=== PATIENT | female | born 1930 | race Caucasian/White ===

== ENCOUNTER 2016-09-18 10:01 | Inpatient (IN) | payer OTHER ==
--- NOTE | ~2016-09-18 | HP ---
History And Physical [facility] [address] [place]. [address] NAME: BENEDICTO COSTELLO : 30 STATUS : ADM Марина PAT#: [id number] AGE: 86 ADM/REG DATE : 09/18/16 MR#: [id number] REPORT SERV DATE: 09/18/16 DICTATED BY: ADRIANA CALVO DATE: 09/18/16 REPORT STATUS : Draft TRANSCRIBED BY: MODL DATE: 09/18/16 DATE OF ADMISSION: 09/18/2016 CHIEF COMPLAINT: Increasing shortness of breath, cough of yellowish sputum, and wheezing since . HISTORY OF PRESENT ILLNESS: This is a prisca 86-year-old female. She has a history of chronic atrial fibrillation, not on anticoagulation due to prior history of GI bleed and peptic ulcer disease. She does have a history of asthma with reactive airway disease. She says history of congestive heart failure with unknown ejection fraction hypertension, hyperlipidemia, hypothyroidism, peptic ulcer disease with prior GI bleed, peripheral vascular disease with prior left carotid endarterectomy, degenerative joint disease, osteoarthritis, and skin cancer, presenting today to [facility] accompanied by her daughter with complaints of increasing shortness of breath, cough of whitish sputum production as well as wheezes that started since . Her shortness of breath got progressively worse to the point that today she has decided to present to [facility]. The patient has been denying any chest pain or palpitation, some PND and intermittent orthopnea. She did not have any presyncopal or syncopal episodes. No nausea. No vomiting. Slightly headache. No diarrhea or constipation. No hematemesis or melena. No hematochezia. No hemoptysis. No other complaints. She has not had any recent sick contacts. No recent hospitalization. The patient has been evaluated in the emergency room and after initial evaluation, Hospitalist Service has been asked for admission, further evaluation, and treatment. The patient's primary care provider is Dr. Polo. The patient's strong nitric operator is Dr. Martinez and patient's photonics engineering technologist is Dr. Mcdonnell. PAST MEDICAL HISTORY: Significant for atrial fibrillation, asthma, congestive heart failure, hypertension, peptic ulcer disease, hypothyroidism, prior GI bleed, peripheral vascular disease, degenerative joint disease, osteoarthritis. PAST SURGICAL HISTORY: Left carotid, hysterectomy, left and right knee replacement, and left and right toe surgery. SOCIAL HISTORY: Denies tobacco, alcohol, or IV drugs. She is allergic to sulfa drugs. FAMILY HISTORY: Significant for congestive heart failure. MEDICATIONS: At home include albuterol, aspirin, Plavix, Flonase, Breo Ellipta, Lasix, Synthroid, Cozaar, Toprol, Bactroban, Prilosec, Paxil, potassium chloride, Zocor, and multivitamins. REVIEW OF SYSTEMS: A 14-point review of systems has been obtained and pertinent positive has been listed into the history of present illness. Otherwise, negative except those underlying above. OBJECTIVE: VITAL SIGNS: The patient currently is afebrile. Blood pressure 170/80, heart rate 77, respiratory rate 20, and saturating around 90% to 91% on room air. History And Physical [address] [address] NAME: BENEDICTO COSTELLO : 30 STATUS : ADM Марина PAT#: [id number] AGE: 86 ADM/REG DATE : 09/18/16 MR#: [id number] REPORT SERV DATE: 09/18/16 DICTATED BY: ADRIANA CALVO DATE: 09/18/16 REPORT STATUS : Draft TRANSCRIBED BY: JC DATE: 09/18/16 GENERAL: She is a very pleasant, well-developed, well-nourished female, in [id number] respiratory distress. She is alert and oriented x3. Nonfocal. She follows her commands appropriately. HEENT: Show pupils equal, round, reactive to light. Extraocular movements intact. No JVD. No lymphadenopathy. No thyromegaly appreciated. CHEST: Shows bilateral air entry. Bilateral scattered wheezes and scattered rhonchi. Decreased breath sounds bibasilarly. No rales appreciated. CARDIOVASCULAR: She is irregularly irregular. S1, S2 positive. No S3, no S4. No murmurs, rubs, or gallops appreciated. ABDOMEN: Soft, positive bowel sounds. Nontender. No guarding. No rebound. EXTREMITIES: No clubbing, cyanosis, or edema. NEUROLOGIC: The patient is alert and oriented x3. She is nonfocal. She follows all her commands appropriately. Cranial nerves are intact. LABORATORY DATA: Labs from today include ABG 7.42, 37, 55, on 21% FiO2. Her sodium is 137, potassium 4, chloride 101, CO2 of 31, BUN 21, creatinine 1.09, glucose is 90. The patient's BNP has been 704.9. Her white count is 4.8, hemoglobin 13.3, hematocrit 39.8, platelets are 112, and the patient's EKG shows left bundle-branch block and atrial fibrillation, and her chest x-ray performed in the emergency room showed bilateral pulmonary infiltrate, likely pulmonary congestion with interstitial edema. ASSESSMENT AND PLAN: This is a very pleasant 86-year-old female with: 1. Likely txuia-xm-[id number] congestive heart failure exacerbation. 2. Asthma exacerbation. 3. Chronic atrial fibrillation. 4. Left bundle-branch block. 5. Hyperesthesia. 6. Peripheral vascular disease. 7. Hypothyroidism. 8. Hyperlipidemia. 9. Recent history of skin cancer. 10.Degenerative joint disease, osteoarthritis. PLAN: 1. The patient will be going to be admitted for observation. Initially, we are going to place her on oxygen IV diuretics for today and transition to oral diuretics in the morning. Rule out her for DC by serial cardiac enzymes, serial EKG. Check 2D echo. Follow up on CT without contrast in the morning and consult Dr. Martinez per patient and family request. 2. Mild asthma exacerbation. We are going to place her on DuoNebs, aggressive, also doxycycline steroids with rapid tapering, continue her Breo Ellipta, Mucinex, Nasonex. We will get a CAT scan of the chest without contrast in the morning and wean her FiO2 as tolerated. 3. Chronic atrial fibrillation. Continue her beta aneta. Continue her aspirin and Plavix. 4. History of peptic ulcer disease. Continue her PPI. 5. History of hypertension. Continue her home medications and provide p.r.n. hydralazine History And Physical [address] [address] NAME: BENEDICTO COSTELLO : 30 STATUS : ADM Марина PAT#: [id number] AGE: 86 ADM/REG DATE : 09/18/16 MR#: [id number] REPORT SERV DATE: 09/18/16 DICTATED BY: ADRIANA CALVO DATE: 09/18/16 REPORT STATUS : Draft TRANSCRIBED BY: MODL DATE: 09/18/16 as needed. 6. Mild chronic kidney disease. We are going to follow up the kidney function very closely. Check UA and urine cultures as well. 7. History of hypothyroidism. Continue her home medication and check a TSH and a free T4. 8. Hyperlipidemia. We will continue her lipid-lowering agent. We will provide reasonable pain and nausea control as well as GI and DVT prophylaxis. Further workup and recommendation pending above. It is worthwhile to note that the patient is going to be followed up by Dr. Ivan Castro. CF/MODL Adriana Calvo M.D. / [id number] CC: Greg Polo MD
--- NOTE | ~2016-09-18 | DS ---
Discharge Summary [facility] [address] [facility] [place]. [address] NAME: BENEDICTO COSTELLO : 30 STATUS : DIS IN PAT#: [id number] AGE: 86 ADM/REG DATE : 09/18/16 MR#: [id number] REPORT SERV DATE: 09/23/16 DICTATED BY: ARMAND ERIC DATE: 09/22/16 REPORT STATUS : Draft TRANSCRIBED BY: MODL DATE: 09/22/16 ADMISSION DATE: 09/18/2016 DISCHARGE DATE: 09/22/2016 The patient is an 86-year-old female with a history of COPD, asthma, heart failure with preserved EF, stage 3 CKD, and hyperlipidemia, who presented to the hospital with a complaint of increased shortness of breath and cough productive of yellow sputum. For further details please refer to H and P dictated by Dr. García on 09/18/2016. HOSPITAL COURSE: I assumed care of the patient on 09/21/2016; however, briefly, the patient came in and was diagnosed with asthma or COPD exacerbation. During workup clinically the patient appeared volume overloaded, was diagnosed with CHF exacerbation. Given these findings, Cardiology was consulted to assist with management. The patient was started on IV diuretics with good response. She was also started on steroids for COPD exacerbation management as well as doxycycline given her production of yellowish sputum, the patient responded well to therapy. At the time of my assumption of care, the patient's heart failure was compensated with no evidence of volume overload. The patient however was on nasal cannula, and daughter who was at bedside was concerned given that at baseline the patient does not require oxygen. The patient was gradually weaned off oxygen with maintenance of adequate saturation. Her cough has significantly resolved, and so has her shortness of breath. The patient has remained also hemodynamically stable. Throughout her hospital course, the patient has been followed by Cardiology. Given the patient's significant improvement Cardiology has currently signed off and cleared the patient for discharge. Given resolution of her shortness of breath and resolution of her cough, the patient will be discharged home today. Plan has been discussed with the patient, who voices understanding and is agreeable with this plan. For further details, from a Cardiology standpoint please refer to consultation note dictated by Dr. Luu on 09/18/2016. DISCHARGE DIAGNOSES: 1. Chronic obstructive pulmonary disease/asthma exacerbation. 2. Heart failure with preserved ejection fraction. 3. Chronic kidney disease, stage 3. 4. Acute kidney injury likely secondary to over diuresis. 5. Hypoxia. 6. Hyperlipidemia. DISCHARGE PHYSICAL EXAMINATION: VITAL SIGNS: Blood pressure 140/68 with a pulse of 82, respirations 20, and O2 saturation 94% on room air. GENERAL: The patient sitting in chair, appears stated age, in no acute distress, eager to go home. HEENT: Normocephalic and atraumatic. Extraocular motors intact. Moist oral mucosa. NECK: Trachea midline and symmetric. No JVD noted. No thyromegaly at the present. No lymphadenopathy noted. CHEST: Nontender to palpation. CARDIOVASCULAR: Regular rate and rhythm. S1, S2. No murmurs, rubs, or gallops. LUNGS: Clear to auscultation bilaterally. No crackles. No wheezes. No rales or rhonchi. Discharge Summary [address] [address] NAME: BENEDICTO COSTELLO : 30 STATUS : DIS IN PAT#: [id number] AGE: 86 ADM/REG DATE : 09/18/16 MR#: [id number] REPORT SERV DATE: 09/23/16 DICTATED BY: ARMAND ERIC DATE: 09/22/16 REPORT STATUS : Draft TRANSCRIBED BY: JC DATE: 09/22/16 ABDOMEN: Positive bowel sounds. Nontender. Nondistended. No organomegaly noted. EXTREMITIES: No cyanosis, no clubbing, no edema. NEUROLOGIC: Alert and oriented x3. No focal deficits appreciated. DISCHARGE MEDICATIONS: 1. Aspirin 81 mg p.o. daily. 2. Plavix 75 mg p.o. daily. 3. Flonase nasal spray, one spray inhalation p.r.n. 4. Furosemide 40 mg p.o. twice a day. Given her slight elevation in creatinine, the patient was instructed to take furosemide once a day until the patient sees her primary care physician to re-evaluate her creatinine which should be in the five to seven days. This was explained to the patient and she voiced understanding. 5. Levothyroxine 50 mcg p.o. every morning. 6. Losartan 100 mg p.o. daily. 7. Bactroban ointment, one application topically twice a day. 8. Metoprolol succinate 50 mg p.o. daily. 9. Omeprazole 20 mg p.o. every morning. 10.Paxil 20 mg p.o. daily. 11.Zocor 40 mg p.o. at bedtime. 12.The patient is to continue on her home dose of potassium replacement, K-Dur 20 mEq tablet, 10 to 20 mEq p.o. three to four days per week. IMAGING STUDIES: 1. Carotid Doppler. Impression:. a. 50 to 69 stenosis involving the right internal carotid artery. b. 50 to 69 stenosis involving the left internal carotid artery. This stenosis is greater in the left internal carotid. c. The vertebral artery exhibited antegrade flow. 2. CT chest without contrast. Impression: Thickening/fluid in the right major fissure, this is slightly decreased compared to 11/19/2013. 3. Area of linear atelectasis and/or fibrosis. The lungs are otherwise clear. 4. Large hiatal hernia. 5. Cardiomegaly, calcific atherosclerosis including involvement of coronary artery disease. 6. Venous Doppler of upper extremity. Impression: No evidence of DVT, right or left upper extremity. 7. Transthoracic echo. Conclusion summary: Normal left ventricular size with low normal systolic function. Estimated ejection fraction 50%. Normal RV size and systolic function. Biatrial enlargement. Mild pulmonary hypertension with RVSP of 44 mmHg. Trace pericardial effusion. Moderate aortic valve stenosis with mean pressure gradient of 12 and TVI 0.31. Mild aortic, mitral, and tricuspid valve regurgitation when compared to previous study from March 2016 no significant change noted. DISPOSITION: The patient will be discharged home. ACTIVITY: As tolerated. Discharge Summary [address] [address] NAME: BENEDICTO COSTELLO : 30 STATUS : DIS IN PAT#: [id number] AGE: 86 ADM/REG DATE : 09/18/16 MR#: [id number] REPORT SERV DATE: 09/23/16 DICTATED BY: ARMAND ERIC DATE: 09/22/16 REPORT STATUS : Draft TRANSCRIBED BY: JC DATE: 09/22/16 DIET: Cardiac diet. Greater than 30 minutes were spent coordinating discharge, medication reconciliation, dictation of note, writing prescription. WHIT/JC Armand Eric MD / [id number] CC: MD Greg Briscoe MD
--- NOTE | ~2016-09-18 | CN ---
Consultation Report [facility] [address] [place]. [address] NAME: BENEDICTO COSTELLO : 30 STATUS : ADM Марина PAT#: [id number] AGE: 86 ADM/REG DATE : 09/18/16 MR#: [id number] REPORT SERV DATE: 09/18/16 DICTATED BY: ROBERTO BLANKENSHIP DATE: 09/18/16 REPORT STATUS : Draft TRANSCRIBED BY: MODL DATE: 09/18/16 CARDIOLOGY CONSULTATION DATE OF CONSULTATION: 09/18/2016 REFERRING REASON: Heart failure exacerbation and asthma exacerbation. HISTORY OF PRESENT ILLNESS: This is a pleasant 86-year-old white female, well known to Dr. Doni Martinez from [facility], who has been closely followed by him. She has chronic atrial fibrillation, which is rate controlled, chronic severe osteopenia, and congestive heart failure. She has a nonischemic cardiomyopathy with EF 45% last time assessed in 03/2016. She has had coronary arteriogram in 2011, which has not revealed any significant obstructive CAD, but confirmed moderate aortic valve stenosis which has been asymptomatic. The patient denied any significant palpitations or syncope. She has been more short of breath over the last week or so with increased wheezing and occasional chills, but no fever. She has some productive sputum mostly clear occasionally lower extremity edema, but she is not sure about the weight gain. She also has a poorly defined chest discomfort at the peak of the coughing spells. She is not on oxygen at home. She is closely followed by Dr. Mcdonnell also for her COPD and asthma. She was admitted to Hospitalist Service. The patient is now able to lie flat comfortable on 2 L of oxygen saturating more than 90%. Chest x-ray reveals some interstitial edema. Brain natriuretic peptide 700, and she remained in rate controlled atrial fibrillation. Of note, she has not been on anticoagulation due to history of GI bleeding care in the past and history of subdural hematoma. The rest of review of systems is negative with. PAST MEDICAL HISTORY: 1. Chronic rate-controlled atrial fibrillation. 2. Anticoagulation due to history of GI bleeding and subdural hematoma. 3. Nonischemic cardiomyopathy with EF 45% by echocardiogram in 03/2016. 4. Chronic diastolic heart failure also. 5. Moderate aortic valve stenosis by echocardiogram in 03/2016 with mean pressure gradient of 15 mmHg, confirmed also by invasive assessment during arteriogram in 2011. 6. Asthma and COPD. 7. Hypothyroidism. 8. Peripheral artery disease with remote history of left carotid endarterectomy. 9. Chronic right bundle-branch block on electrocardiogram. 10.Moderate pulmonary hypertension. 11.Remote history of CVA in 2010. ALLERGIES: SULFA. SOCIAL HISTORY: The patient is . She walks without any support. Denies smoking, drinking alcohol, or using street drugs. She has a good family support. Consultation Report [address] [address] NAME: BENEDICTO COSTELLO : 30 STATUS : ADM Марина PAT#: [id number] AGE: 86 ADM/REG DATE : 09/18/16 MR#: [id number] REPORT SERV DATE: 09/18/16 DICTATED BY: ROBERTO BLANKENSHIP DATE: 09/18/16 REPORT STATUS : Draft TRANSCRIBED BY: JC DATE: 09/18/16 FAMILY HISTORY: Negative for sudden cardiac deaths or premature coronary artery disease in the family. HOME MEDICATIONS: Albuterol p.r.n., aspirin 81 mg once a day, Plavix 75 mg once a day, Flonase, fluticasone inhalers twice a day, Lasix 40 mg twice a day, Synthroid 50 mcg once a day, Cozaar 100 mg once a day, Toprol-XL 50 mg once a day, omeprazole 20 mg once a day, Paxil 20 mg once a day, potassium supplement 20 mEq once a day, Zocor 40 mg once a day, and vitamin C. PHYSICAL EXAMINATION: GENERAL: No acute distress, elderly female. VITAL SIGNS: Blood pressure 140/90 and, heart rate 80, irregularly irregular. HEENT: Pupils reactive to light and accommodation. Moist mucosa membrane. NECK: No JVD. Normal carotid upstroke. No carotid bruits. LUNGS: Diffuse wheezing but no crackles. HEART: Irregularly irregular heart rate. ABDOMEN: Distended, nontender. LOWER EXTREMITIES: Trace edema around the ankle with decreased pedal pulses bilaterally. SKIN: Warm with normal turgor. MS: No kyphosis. NEURO/PSY: Alert and oriented. Nonfocal. DATA: On monitor, she is in atrial fibrillation. Electrocardiogram revealed atrial fibrillation, rate controlled, 76 beats per minute with chronic left bundle-branch block. CBC: Remarkable for thrombocytopenia 112,000. Creatinine is 1.0 Brain natriuretic peptide 704. Chest x-ray as above. ASSESSMENT AND PLAN: 1. Asthma and chronic obstructive pulmonary disease exacerbation. 2. Congestive heart failure with exacerbation. 3. Aortic valve stenosis, currently asymptomatic. 4. Chronic rate controlled atrial fibrillation. The patient will be on strict I and O and fluid restriction. She will be diuresed with intravenous diuretics. We will plan for echocardiogram to recheck her systolic function, diastolic function, and pulmonary hypertension. We will also check for the gradient across the aortic valve while there is nothing suggesting severe aortic valve stenosis based on her symptoms. OJL/MODL Consultation Report [facility] [address] [place]. [address] NAME: BENEDICTO COSTELLO : 30 STATUS : ADM Марина PAT#: [id number] AGE: 86 ADM/REG DATE : 09/18/16 MR#: [id number] REPORT SERV DATE: 09/18/16 DICTATED BY: ROBERTO BLANKENSHIP DATE: 09/18/16 REPORT STATUS : Draft TRANSCRIBED BY: JC DATE: 09/18/16 Roberto Blankenship M.D. / [id number] CC: Ivan Castro MD
[~2016-09-18 10:01] MED LIST: CALTRA600D PO; COZAAR100 MG PO; KDUR20 PO; L20 PO; L40 PO; PAX20 PO; PLAVIX PO; PRILO PO; TOPXL100 PO; ZOCOR20 PO; [UNRECOGNIZED DRUG - OTHER] OR; [UNRECOGNIZED DRUG - OTHER] OR
[2016-09-18 10:37] LABS: BASOPHILS 0.2 %; BASOPHILS ABSOLUTE 0.01 10/3/uL (0.0-0.16); EOSINOPHILS 0 %; HEMATOCRIT 39.8 % (36.0-48.0); HEMOGLOBIN 13.3 g/dL (12.0-16.0); IMMATURE GRANULOCYTES 0.2 %; IMMATURE GRANULOCYTES ABSOLUTE 0.01 10/3/uL (0.0-0.11); LYMPHOCYTES ABSOLUTE 0.86 10/3/uL (0.67-4.30); MANUAL DIFF NO %; MEAN CORPUS HGB CONC 33.4 g/dL (32.0-36.0); MEAN CORPUSCULAR HEMOGLOB 33.6 pg (26.0-34.0); MEAN CORPUSCULAR VOLUME 100.5 fL (80-100); MEAN PLATELET VOLUME 10.1 fL (9.2-13.0); MONOCYTES ABSOLUTE 0.48 10/3/uL (0.21-1.20); NEUTROPHILS 71.6 %; NEUTROPHILS ABSOLUTE 3.42 10/3/uL (2.02-8.40); PLATELET COUNT 112 10/3/uL (150-400); RBC DISTRIBUTION WIDTH 13.9 % (12.0-16.0); RED CELL COUNT 3.96 10/6/uL (4.0-5.6); WHITE BLOOD CELLS 4.8 10/3/uL (4.5-10.5)
[2016-09-18 10:38] LABS: ALLENS TEST Pos; BE (BASE EXCESS) -0.6 MEQ/L (0 +/- 2.5); CARBOXYHEMOGLOBIN 1.7 % (0-3); HCO3 (ACTUAL BICARBONATE) 23.6 MEQ/L (23-27); HEMOBLOGIN CONTENT 13.7 G/DL (12-16); INSTRUMENT SERIAL # 8087; METHEMOGLOBIN 0.2 % (0-3); PCO2 (CO2 TENSION) 37 MMHG (35-45); PO2 (O2 TENSION) 55 MMHG (79-93); SAMPLE Arterial; pH 7.42 (7.37-7.43)
[2016-09-18 10:47] LABS: BUN (BLOOD UREA NITROGEN) 21 MG/DL (6-23); CALCIUM, SERUM 9.1 MG/DL (8.5-10.4); CHLORIDE, SERUM 101 MMOL/L (96-112); CO2 (CARBON DIOXIDE) 31 MMOL/L (24-34); CREATININE 1.09 MG/DL (0.55-1.02); GFR AFRICAN AMERICAN 53 ML/MIN (>=60); GFR NON AFRICAN AMERICAN 46 ML/MIN (>=60); SODIUM, SERUM 137 MMOL/L (135-148)
[2016-09-18 10:48] LABS: GLUCOSE, SERUM 90 MG/DL (60-99)
[2016-09-18 10:55] LABS: BAND NEUTROPHILS 9 %; EOSINOPHILS 4 %; EOSINOPHILS ABSOLUTE (CALC) 0.19 10/3/uL (0.0-0.53); ER DIFF TAT 0 Hrs 24 Mins; LYMPHOCYTES 19 %; LYMPHOCYTES ABSOLUTE (CALC) 0.91 10/3/uL (0.67-4.30); MACROCYTES 1+ (5-10/OIF) (0-5/OIF); MONOCYTES 9 %; MONOCYTES ABSOLUTE (CALC) 0.43 10/3/uL (0.21-1.20); NEUTROPHILS ABSOLUTE (CALC) 3.26 10/3/uL (2.02-8.40); PLATELET ESTIMATE SLT DEC (ADEQUATE); SEGMENTED NEUTROPHIL (0) 59 %; TOTAL NUCLEATED CELLS 100
[2016-09-18 10:56] LABS: POLYCHROMASIA 1+ (2-5/OIF) (0-1/OIF); TOXIC GRANULATION SLT
[2016-09-18 10:58] LABS: B NATRIURETIC PEPTIDE (BNP) 704.9 PG/ML (< 100.0)
[2016-09-18] MEDS ORDERED: PRILO PO (11:44)
[2016-09-18] MEDS ORDERED: L40 PO (11:45)
[2016-09-18] MEDS ORDERED: SYN.05 PO (11:45)
[2016-09-18] MEDS ORDERED: BREO ELLIPTA 21 EACH INH (11:45)
[2016-09-18] MEDS ORDERED: BACTROINT TOP (11:46)
[2016-09-18] MEDS ORDERED: COZAAR100 MG PO (11:46)
[2016-09-18] MEDS ORDERED: TOPXL50 PO (11:46)
[2016-09-18] MEDS ORDERED: PROAIR HFA INH (11:49)
[2016-09-18] MEDS ORDERED: PLAVIX PO (11:49)
[2016-09-18] MEDS ORDERED: PAX20 PO (11:50)
[2016-09-18] MEDS ORDERED: KDUR20 PO (11:53)
[2016-09-18] MEDS ORDERED: FLONASE NAS (11:54)
[2016-09-18] MEDS ORDERED: ASAB PO (11:55)
[2016-09-18] MEDS ORDERED: PRESERVISION A1 EAC1 PO (11:55)
[2016-09-18] MEDS ORDERED: ZOCOR40 PO (11:55)
[2016-09-18 17:23] LABS: PARTIAL THROMBO TIME 30.3 SEC (22.5-37.2); PROTIME (NOT ORD) 13.4 SEC (12.0-14.5)
[2016-09-18 17:55] LABS: ALBUMIN 3.4 G/DL (3.5-5.0); ALKALINE PHOSPHATASE 67 U/L (45-117); CHOL/HDL RATIO(NOT ORDER) 2.7 (0-5); CHOLESTEROL 126 MG/DL (< 200); CK-MB 1.2 NG/ML; CPK 49 U/L (0-200); DIRECT BILIRUBIN 0.1 MG/DL (0.0-0.4); FREE T4 1.13 NG/DL (0.76-1.46); HDL CHOLESTEROL 46 MG/DL (> 49); INDIRECT BILIRUBIN(NOT ORDER) 0.4 MG/DL (0.1-0.9); LDL CHOLESTEROL 59 MG/DL (< 130); NON-HDL CHOLESTEROL 80 MG/DL (< 160); PHOSPHORUS, SERUM 2.5 MG/DL (2.5-4.5); SGOT(AST) 33 U/L (5-40); SGPT(ALT) 32 U/L (5-65); TOTAL BILIRUBIN 0.5 MG/DL (0-1.2); TOTAL PROTEIN 6.9 G/DL (6.0-8.5); TRIGLYCERIDE 105 MG/DL (< 150); TROPONIN I <0.02 NG/ML (<0.05)
[2016-09-18 19:06] LABS: ASCORBIC ACID (UR NOT ORDER) NEG (NEG); BILIRUBIN, URINE NEGATIVE (NEG); KETONE, URINE NEGATIVE (NEG); LEUKOCYTE ESTERASE(NOT OR NEG (NEG); WBC (NOT ORDERED) (RFLEX) < 1 (0-5)
[2016-09-18 19:22] LABS: ALBUMIN 3.6 G/DL (3.5-5.0); ALKALINE PHOSPHATASE 73 U/L (45-117); CHOL/HDL RATIO(NOT ORDER) 3.1 (0-5); CHOLESTEROL 145 MG/DL (< 200); CPK 42 U/L (0-200); FREE T4 1.11 NG/DL (0.76-1.46); HDL CHOLESTEROL 47 MG/DL (> 49); LDL CHOLESTEROL 82 MG/DL (< 130); NON-HDL CHOLESTEROL 98 MG/DL (< 160); PHOSPHORUS, SERUM 2.3 MG/DL (2.5-4.5); SGOT(AST) 26 U/L (5-40); SGPT(ALT) 32 U/L (5-65); TOTAL BILIRUBIN 0.4 MG/DL (0-1.2); TOTAL PROTEIN 7.1 G/DL (6.0-8.5); TRIGLYCERIDE 83 MG/DL (< 150); TROPONIN I <0.02 NG/ML (<0.05)
[2016-09-18 19:25] LABS: CK-MB 1.4 NG/ML; DIRECT BILIRUBIN < 0.1 MG/DL (0.0-0.4); INDIRECT BILIRUBIN(NOT ORDER) 0.3 MG/DL (0.1-0.9); ULTRASENSITIVE TSH 0.796 MCIU/ML (0.358-3.740)
[2016-09-18 19:38] LABS: PROCALCITONIN <0.05 ng/mL (<0.5)
[2016-09-19 01:59] LABS: CPK 38 U/L (0-200); TROPONIN I <0.02 NG/ML (<0.05)
[2016-09-19 02:00] LABS: CK-MB 1.1 NG/ML
[2016-09-19 02:05] LABS: BASOPHILS 0.2 %; BASOPHILS ABSOLUTE 0.01 10/3/uL (0.0-0.16); EOSINOPHILS 0 %; HEMATOCRIT 38.5 % (36.0-48.0); HEMOGLOBIN 12.8 g/dL (12.0-16.0); IMMATURE GRANULOCYTES 0.2 %; IMMATURE GRANULOCYTES ABSOLUTE 0.01 10/3/uL (0.0-0.11); LYMPHOCYTES 9.8 %; LYMPHOCYTES ABSOLUTE 0.43 10/3/uL (0.67-4.30); MEAN CORPUS HGB CONC 33.2 g/dL (32.0-36.0); MEAN CORPUSCULAR HEMOGLOB 33.3 pg (26.0-34.0); MEAN CORPUSCULAR VOLUME 100.3 fL (80-100); MEAN PLATELET VOLUME 10.4 fL (9.2-13.0); MONOCYTES 2.3 %; NEUTROPHILS 87.5 %; NEUTROPHILS ABSOLUTE 3.82 10/3/uL (2.02-8.40); PLATELET COUNT 112 10/3/uL (150-400); RBC DISTRIBUTION WIDTH 13.7 % (12.0-16.0); RED CELL COUNT 3.84 10/6/uL (4.0-5.6); WHITE BLOOD CELLS 4.4 10/3/uL (4.5-10.5)
[2016-09-19 02:08] LABS: MANUAL DIFF NO %
[2016-09-19 02:16] LABS: A/G RATIO 0.9 (0.7-1.9); ALBUMIN 3.2 G/DL (3.5-5.0); ALKALINE PHOSPHATASE 65 U/L (45-117); BUN (BLOOD UREA NITROGEN) 22 MG/DL (6-23); CALCIUM, SERUM 9.5 MG/DL (8.5-10.4); CHLORIDE, SERUM 100 MMOL/L (96-112); CHOLESTEROL 135 MG/DL (< 200); CO2 (CARBON DIOXIDE) 32 MMOL/L (24-34); CREATININE 1.17 MG/DL (0.55-1.02); GFR AFRICAN AMERICAN 49 ML/MIN (>=60); GFR NON AFRICAN AMERICAN 42 ML/MIN (>=60); HDL CHOLESTEROL 45 MG/DL (> 49); LDL CHOLESTEROL 71 MG/DL (< 130); NON-HDL CHOLESTEROL 90 MG/DL (< 160); POTASSIUM, SERUM 4.6 MMOL/L (3.5-5.3); SGOT(AST) 23 U/L (5-40); SGPT(ALT) 28 U/L (5-65); SODIUM, SERUM 138 MMOL/L (135-148); TOTAL BILIRUBIN 0.5 MG/DL (0-1.2); TOTAL PROTEIN 6.6 G/DL (6.0-8.5); TRIGLYCERIDE 97 MG/DL (< 150)
[2016-09-19 02:18] LABS: GLOBULIN 3.4 G/DL (2.5-4.1); GLUCOSE, SERUM 183 MG/DL (60-99)
[2016-09-19 03:41] LABS: INFLUENZA A SCREEN NEGATIVE (NEGATIVE); INFLUENZA B SCREEN NEGATIVE (NEGATIVE)
[2016-09-19 07:27] LABS: GLYCOHEMOGLOBIN (HbA1c) 5.4 % (4.7-6.1)
[2016-09-19 09:48] LABS: CK-MB 1.6 NG/ML; CPK 46 U/L (0-200); TROPONIN I <0.02 NG/ML (<0.05)
[2016-09-20 05:40] LABS: BASOPHILS 0.1 %; BASOPHILS ABSOLUTE 0.01 10/3/uL (0.0-0.16); EOSINOPHILS 0 %; HEMATOCRIT 37.4 % (36.0-48.0); HEMOGLOBIN 12.6 g/dL (12.0-16.0); IMMATURE GRANULOCYTES 0.3 %; IMMATURE GRANULOCYTES ABSOLUTE 0.02 10/3/uL (0.0-0.11); LYMPHOCYTES 7.8 %; LYMPHOCYTES ABSOLUTE 0.58 10/3/uL (0.67-4.30); MEAN CORPUS HGB CONC 33.7 g/dL (32.0-36.0); MEAN CORPUSCULAR HEMOGLOB 33.9 pg (26.0-34.0); MEAN CORPUSCULAR VOLUME 100.5 fL (80-100); MEAN PLATELET VOLUME 10.3 fL (9.2-13.0); MONOCYTES 4.6 %; MONOCYTES ABSOLUTE 0.34 10/3/uL (0.21-1.20); NEUTROPHILS 87.2 %; NEUTROPHILS ABSOLUTE 6.51 10/3/uL (2.02-8.40); PLATELET COUNT 116 10/3/uL (150-400); RBC DISTRIBUTION WIDTH 14.2 % (12.0-16.0); RED CELL COUNT 3.72 10/6/uL (4.0-5.6)
[2016-09-20 05:44] LABS: CHLORIDE, SERUM 100 MMOL/L (96-112); CO2 (CARBON DIOXIDE) 28 MMOL/L (24-34); CREATININE 1.14 MG/DL (0.55-1.02); GFR AFRICAN AMERICAN 50 ML/MIN (>=60); GFR NON AFRICAN AMERICAN 44 ML/MIN (>=60); GLUCOSE, SERUM 160 MG/DL (60-99); POTASSIUM, SERUM 3.9 MMOL/L (3.5-5.3); SODIUM, SERUM 137 MMOL/L (135-148)
[2016-09-20 05:51] LABS: MANUAL DIFF NO %; WHITE BLOOD CELLS 7.5 10/3/uL (4.5-10.5)
[2016-09-20 05:54] LABS: BUN (BLOOD UREA NITROGEN) 31 MG/DL (6-23)
[2016-09-21 05:05] LABS: CALCIUM, SERUM 9.9 MG/DL (8.5-10.4); CHLORIDE, SERUM 99 MMOL/L (96-112); CO2 (CARBON DIOXIDE) 30 MMOL/L (24-34); CREATININE 1.26 MG/DL (0.55-1.02); GFR AFRICAN AMERICAN 45 ML/MIN (>=60); GFR NON AFRICAN AMERICAN 39 ML/MIN (>=60); POTASSIUM, SERUM 4.1 MMOL/L (3.5-5.3); SODIUM, SERUM 138 MMOL/L (135-148)
[2016-09-21 05:08] LABS: BUN (BLOOD UREA NITROGEN) 40 MG/DL (6-23); GLUCOSE, SERUM 98 MG/DL (60-99)
[2016-09-22 05:18] LABS: BASOPHILS 0.2 %; BASOPHILS ABSOLUTE 0.01 10/3/uL (0.0-0.16); EOSINOPHILS 0 %; HEMATOCRIT 39.9 % (36.0-48.0); HEMOGLOBIN 13.7 g/dL (12.0-16.0); IMMATURE GRANULOCYTES 0.8 %; IMMATURE GRANULOCYTES ABSOLUTE 0.05 10/3/uL (0.0-0.11); LYMPHOCYTES 19.8 %; LYMPHOCYTES ABSOLUTE 1.27 10/3/uL (0.67-4.30); MEAN CORPUS HGB CONC 34.3 g/dL (32.0-36.0); MEAN CORPUSCULAR HEMOGLOB 33.7 pg (26.0-34.0); MEAN PLATELET VOLUME 10.5 fL (9.2-13.0); MONOCYTES 8.6 %; MONOCYTES ABSOLUTE 0.55 10/3/uL (0.21-1.20); NEUTROPHILS 70.6 %; NEUTROPHILS ABSOLUTE 4.54 10/3/uL (2.02-8.40); PLATELET COUNT 139 10/3/uL (150-400); RBC DISTRIBUTION WIDTH 13.7 % (12.0-16.0); RED CELL COUNT 4.07 10/6/uL (4.0-5.6); WHITE BLOOD CELLS 6.4 10/3/uL (4.5-10.5)
[2016-09-22 05:19] LABS: MANUAL DIFF NO %
[2016-09-22 05:26] LABS: A/G RATIO 1.1 (0.7-1.9); ALBUMIN 3.3 G/DL (3.5-5.0); ALKALINE PHOSPHATASE 54 U/L (45-117); CALCIUM, SERUM 9.5 MG/DL (8.5-10.4); CHLORIDE, SERUM 99 MMOL/L (96-112); CO2 (CARBON DIOXIDE) 29 MMOL/L (24-34); CREATININE 1.35 MG/DL (0.55-1.02); GFR AFRICAN AMERICAN 41 ML/MIN (>=60); GFR NON AFRICAN AMERICAN 35 ML/MIN (>=60); GLUCOSE, SERUM 111 MG/DL (60-99); POTASSIUM, SERUM 3.6 MMOL/L (3.5-5.3); SGOT(AST) 20 U/L (5-40); SGPT(ALT) 31 U/L (5-65); SODIUM, SERUM 137 MMOL/L (135-148); TOTAL BILIRUBIN 0.6 MG/DL (0-1.2); TOTAL PROTEIN 6.3 G/DL (6.0-8.5)
[2016-09-22 05:28] LABS: BUN (BLOOD UREA NITROGEN) 45 MG/DL (6-23)
[2016-09-22] MEDS ORDERED: P20 PO (12:39)
== END 2016-09-22 14:40 | disposition home health service (06) | DRG 291 ==
LOC: ER 10:01 → CDU1 13:35 → 7NO 09-20 00:23
PROVIDERS: Emergency Medicine; Hospitalist; Internal Medicine
DX: I13.0 Hypertensive heart and chronic kidney disease with heart failure and stage 1 through stage 4 chronic kidney disease, or unspecified chronic kidney disease (principal); I50.33 Acute on chronic diastolic (congestive) heart failure; N17.9 Acute kidney failure, unspecified; I27.2 Other secondary pulmonary hypertension; J44.1 Chronic obstructive pulmonary disease with (acute) exacerbation; I42.9 Cardiomyopathy, unspecified; I48.2 Chronic atrial fibrillation; E78.5 Hyperlipidemia, unspecified; R09.02 Hypoxemia; N18.3 Chronic kidney disease, stage 3 (moderate); K44.9 Diaphragmatic hernia without obstruction or gangrene; I25.10 Atherosclerotic heart disease of native coronary artery without angina pectoris; I25.84 Coronary atherosclerosis due to calcified coronary lesion; I35.0 Nonrheumatic aortic (valve) stenosis; I73.9 Peripheral vascular disease, unspecified; I45.10 Unspecified right bundle-branch block; I44.7 Left bundle-branch block, unspecified; Z79.02 Long term (current) use of antithrombotics/antiplatelets; Z79.82 Long term (current) use of aspirin
CPT/HCPCS: 36600; 71010; 71250; 80048; 80053; 80061; 80076; 81001; 82550; 82553; 82805; 82962; 83036; 83615; 83735; 83880; 84100; 84145; 84439; 84443; 84484; 85025; 85610; 85730; 87040; 87070; 87205; 87449; 87804; 93005; 93306; 93880; 93970; 94640; 96374; 99285; A9270-GY; J0360; J2930